=== PATIENT | female | born 1990 | race African-American/Black ===

== ENCOUNTER 2016-08-07 12:11 | Inpatient (IN) | payer OTHER ==
[2016-08-07 12:23] VITALS: BMI 34.4
[2016-08-07] MEDS ORDERED: ONDANSETRON 4 MG/2 ML VIAL IVPB ONE (13:15)
[2016-08-07] MEDS ORDERED: ACETAMINOPHEN 325 MG TABLET (FP) PO ONE (13:15)
[2016-08-07] MEDS ORDERED: SODIUM CHLORIDE 1,000 ML IV ONE (13:15)
--- NOTE | 2016-08-07 13:16 | PDOC ---
History of Present Illness - General Chief Complaint: Pain Stated Complaint: ABD PAIN Time Seen by Provider: 08/07/16 13:09 History Source: Patient Exam Limitations: No Limitations - History of Present Illness Travel History: No Initial Comments: 08/07/16 13:26 26y F no pmhx presents with abdominal pain, n/v/d, x 2 days. Pt states she started having lower abodminal pain that is sharp in nature, she has been having multiple episodes of vomiting that was yellow/green in color and having water diarrhea that was occasionally blood streaked. The pt denies any fevers, but was noted febrile here in ED. The patient denies any recent travel and known sick contacts - the pt did note that she had similar sypmtoms in may that resolved spontaneously. No abd surgery in the past. Denies dysuria, hematuria, vag bleeding. Past History - Past Medical History Allergies/Adverse Reactions: Allergies Allergy/AdvReac Type Severity Reaction Status Date / Time No Known Allergies Allergy Verified 08/07/16 12:23 Cancer: (LEUKEMIA) - Psycho/Social/Smoking Cessation Hx Suicidal Ideation: No Smoking History: Never smoked Information on smoking cessation initiated: No Review of Systems - Review of Systems Able to Perform ROS?: Yes Comments:: 08/07/16 13:29 Constitutional - no reported Fever, Chills, weakness, HEENT: no reported vision changes, sore throat Respiratory: no reported cough, sob, hemoptysis Cardiac: no reported chest pain, palpitations, light headedness, leg swelling Abd/GI: reported abd pain, nausea, vomiting, diarrhea, blood streaked stool/ diarrhea : no reported dysuria, frequency, discharge Musculskelatal - no reported back pain, joint swelling skin - no reported bruising, erythema, rash neurological: no reported headache, numbness, focal weakness, tingling, ataxia, weakness hematologic: no reported anemia, easy bruising, easy bleeding *Physical Exam - Vital Signs Last Vital Signs Temp Pulse Resp BP Pulse Ox 102.7 F H 129 H 18 126/74 98 08/07/16 12:20 08/07/16 12:20 08/07/16 12:20 08/07/16 12:20 08/07/16 12:20 - Physical Exam Comments: 08/07/16 13:30 GENERAL: The patient is awake, alert, and fully oriented, Nontoxic - in no acute distress. HEAD: Normocephalic, atraumatic. EYES: extraocular movements intact, sclera anicteric, conjunctiva clear. ENT: Normal voice, Moist mucous membranes. NECK: Normal range of motion, supple LUNGS: Breath sounds equal, clear to auscultation bilaterally. No wheezes, no rhonchi, no rales. HEART: tachycardic, mild diffuse tenderness greatest in RLQ/LUQ ABDOMEN: Soft, nontender, normoactive bowel sounds. No guarding, no rebound. . No CVA tenderness EXTREMITIES: Normal range of motion, no edema. No clubbing or cyanosis. No cords, erythema, or tenderness. NEUROLOGICAL: No facial assymetry, Normal speech, PSYCH: Normal mood, normal affect. SKIN: hot to touch, Dry, normal turgor, ED Treatment Course - LABORATORY CBC & Chemistry Diagram: 08/07/16 13:40 08/07/16 13:40 Medical Decision Making - Medical Decision Making 08/07/16 13:30 suspect gastroenteritis will obtain blood work will treat supportively with fluids, zofran, tylenol consider imaging 08/07/16 17:[address] c/w pancolitis pt did have an episode of this in may that resolved w/o intervention - ?UC/ crohns? pt still feeling nauseus with abomdinal pain will admit for further mangament of colitis pt written for levaquin/flagyl will discuss with dr. gallagher 08/07/16 17:[address] gallagher consult for dr. leon placed in computer on behalf of dr. gallagher. agreed with admission for further mangament of colitis will admit to observation in med/surg Case discussed in detail with admitting physician including history, physical exam and ancillary studies. Admitting physician has assumed care for the patient, will follow all pending diagnostics and will complete the evaluation and treatment. *DC/Admit/Observation/Transfer Diagnosis at time of Disposition: Pancolitis - Discharge Dispostion Condition at time of disposition: Guarded Admit: Yes - Referrals Referrals: STAFF,NOT ON [Primary Care Provider] -
[2016-08-07] MEDS ORDERED: ONDANSETRON 4 MG/2 ML VIAL ONE (13:28)
[2016-08-07] MEDS ORDERED: ACETAMINOPHEN 325 MG TABLET (FP) ONE (13:42)
[2016-08-07 13:47] LABS: BASOPHIL 0.4 % (0-2.0); EOSINOPHIL 0.1 % (0-4.5); MCH 21.8 pg (25.7-33.7); MCHC 31.9 g/dl (32.0-36.0); MEAN CELL VOLUME 68.3 fl (80-96); NEUTROPHILS 88.6 % (42.8-82.8); PLATELET COUNT 268 K/MM3 (134-434); RDW 14.2 % (11.6-15.6); WHITE BLOOD COUNT 14.9 K/mm3 (4.0-10.0)
[2016-08-07 13:53] LABS: URINE APPEARANCE CLEAR; URINE BILIRUBIN NEGATIVE (NEGATIVE); URINE COLOR YELLOW; URINE GLUCOSE (UA) NEGATIVE (NEGATIVE); URINE KETONE NEGATIVE (NEGATIVE); URINE LEUK ESTERASE NEGATIVE (NEGATIVE); URINE NITRITE NEGATIVE (NEGATIVE); URINE UROBILINOGEN NEGATIVE E.U./dl (0.2-1.0)
[2016-08-07 13:56] LABS: URINE BLOOD 1+ (NEGATIVE); URINE PROTEIN 1+ (NEGATIVE)
[2016-08-07 13:58] LABS: URINE MUCUS RARE; URINE RBC 2 /hpf (0-3); URINE WBC 3 /hpf (3-5)
[2016-08-07 14:19] LABS: ALBUMIN 3.7 g/dl (3.4-5.0); ANION GAP 10 (8-16); BILIRUBIN,TOTAL 0.5 mg/dL (0.2-1.0); CALCIUM 9.1 mg/dL (8.5-10.1); CO2 28 mmol/L (21-32); GLUCOSE,RANDOM 85 mg/dL (74-106); TOT PROT 7.9 g/dl (6.4-8.2)
[2016-08-07 14:43] LABS: ALK PHOS 73 U/L (45-117); SGOT/AST 22 U/L (15-37); SGPT/ALT 22 U/L (12-78)
[2016-08-07 14:45] LABS: HYPOCHROMIA 2+; MICROCYTOSIS 2+
[2016-08-07] MEDS ORDERED: LEVOFLOXACIN 750 MG IVPB 150 ML IVPB ONE ×2 (17:00→17:29)
--- NOTE | 2016-08-07 19:23 | HP ---
Admitting History and Physical - Primary Care Physician PCP: Darvin Chavis - Admission History of Present Illness: 26yo female, came to Er with abdominal pain, n/v/d, x 2 days. Pt states she started having lower abodminal pain that is sharp in nature, she has been having multiple episodes of vomiting that was yellow/green in color and having water diarrhea that was occasionally blood streaked. The pt denies any fevers, she had similar symptoms in may - Smoking History Smoking history: Never smoked Home Medications - Allergies Allergies/Adverse Reactions: Allergies Allergy/AdvReac Type Severity Reaction Status Date / Time No Known Allergies Allergy Verified 08/07/16 12:23 - Home Medications Home Medications: Ambulatory Orders NK [No Known Home Medication] 08/07/16 Physical Examination Vital Signs: Vital Signs Temperature 98.9 F 08/07/16 18:38 Pulse Rate 94 H 08/07/16 18:38 Respiratory Rate 18 08/07/16 18:38 Blood Pressure 129/91 08/07/16 18:38 O2 Sat by Pulse Oximetry (%) 97 08/07/16 18:38 Constitutional: Yes: No Distress HENT: Yes: Atraumatic Neck: Yes: Supple Cardiovascular: Yes: Regular Rate and Rhythm Respiratory: Yes: CTA Bilaterally Gastrointestinal: Yes: Normal Bowel Sounds Extremities: Yes: WNL Neurological: Yes: Alert, Oriented Problem List - Problems (1) Pancolitis Assessment/Plan: npo ivf iv abx will check stool for diff ova and parasite Code(s): K51.00 - ULCERATIVE (CHRONIC) PANCOLITIS WITHOUT COMPLICATIONS Assessment/Plan Laboratory Tests 08/07/16 08/07/16 08/07/16 13:08 13:40 13:40 WBC 14.9 H RBC 5.40 H Hgb 11.7 Hct 36.9 MCV 68.3 L MCHC 31.9 L RDW 14.2 Plt Count 268 MPV 8.0 Neutrophils % 88.6 H Lymphocytes % 5.9 L Monocytes % 5.0 Eosinophils % 0.1 Basophils % 0.4 Hypochromic-Microcytic 2+ Microcytosis 2+ Sodium 138 Potassium 3.8 Chloride 100 Carbon Dioxide 28 Anion Gap 10 BUN 6 L Creatinine 1.0 Creat Clearance w eGFR > 60 Random Glucose 85 Calcium 9.1 Total Bilirubin 0.5 AST 22 ALT 22 Alkaline Phosphatase 73 Total Protein 7.9 Albumin 3.7 Urine Color Yellow Urine Appearance Clear Urine pH 5.0 Ur Specific [place] 1.021 Urine Protein 1+ H Urine Glucose (UA) Negative Urine Ketones Negative Urine Blood 1+ H Urine Nitrite Negative Urine Bilirubin Negative Urine Urobilinogen Negative Ur Leukocyte Esterase Negative Urine RBC 2 Urine WBC 3 Ur Epithelial Cells Rare Urine Mucus Rare Urine HCG, Qual Negative
[2016-08-07] MEDS ORDERED: HYDROmorphone HCL CARPU-JECT 1 MG/1 ML DISP.SYRIN IVPB PRN (20:38)
[2016-08-07] MEDS: SODIUM CHLORIDE 1,000 ML IV SCH (21:56)
[2016-08-07] MEDS: ONDANSETRON 4 MG/2 ML VIAL IVPB PRN (21:57)
[2016-08-07] MEDS: METRONIDAZOLE 500 MG PREMIXED 100 ML IVPB SCH (21:57)
[2016-08-08] MEDS: PIPERACILLIN/TAZOB 3.375 GM/50 ML PRE-DOCKED IVPB SCH ×3 (01:29→18:33)
[2016-08-08] MEDS ORDERED: PIPERACILLIN/TAZOB 3.375 GM 3.375 GM in DEXTROSE 5%-WATER - 50 ML IVPB SCH (02:00)
[2016-08-08] MEDS: METRONIDAZOLE 500 MG PREMIXED 100 ML IVPB SCH ×3 (03:45→16:57)
[2016-08-08] MEDS: ONDANSETRON 4 MG/2 ML VIAL IVPB PRN ×2 (03:46→09:50)
[2016-08-08 07:56] LABS: BASOPHIL 0.2 % (0-2.0); EOSINOPHIL 0.1 % (0-4.5); MCH 21.9 pg (25.7-33.7); MCHC 32.2 g/dl (32.0-36.0); MEAN CELL VOLUME 68.2 fl (80-96); MEAN PLT VOLUME 8.3 fl (7.5-11.1); PLATELET COUNT 255 K/MM3 (134-434); RDW 14.2 % (11.6-15.6); WHITE BLOOD COUNT 12.4 K/mm3 (4.0-10.0)
[2016-08-08 08:23] LABS: ALBUMIN 3.3 g/dl (3.4-5.0); ANION GAP 11 (8-16); BILIRUBIN,TOTAL 0.5 mg/dL (0.2-1.0); CALCIUM 8.6 mg/dL (8.5-10.1); CO2 25 mmol/L (21-32); CREATININE 0.9 mg/dL (0.55-1.02); GLUCOSE,RANDOM 78 mg/dL (74-106); SGOT/AST 21 U/L (15-37); SGPT/ALT 22 U/L (12-78); TOT PROT 7.1 g/dl (6.4-8.2)
[2016-08-08 08:24] LABS: ALK PHOS 64 U/L (45-117)
[2016-08-08] MEDS ORDERED: LEVOFLOXACIN 500 MG IVPB 100 ML IVPB SCH (10:00)
--- NOTE | 2016-08-08 15:16 | CONSULT ---
Consult Consult Specialty:: infectious diseases Referred by:: Dr Chavis Reason for Consultation:: abd pain - History of Present Illness Chief Complaint: abd pain and vomiting History of Present Illness: 26yo female, with abdominal pain, n/v/d, x 2 days. Pt states she started having lower abdominal pain that is sharp in nature, she has been having multiple episodes of vomiting that was yellow/green in color and having water diarrhea that was occasionally blood streaked. The pt denies any fevers, she had similar symptoms in May and was told that she had food poisoning currently the patient is comfortable but with abd pain which has improved - History Source History Provided By: Patient Limitations to Obtaining History: No Limitations - Smoking History Smoking history: Never smoked Home Medications - Allergies Allergies/Adverse Reactions: Allergies Allergy/AdvReac Type Severity Reaction Status Date / Time No Known Allergies Allergy Verified 08/07/16 12:23 - Home Medications Home Medications: Ambulatory Orders NK [No Known Home Medication] 08/07/16 Review of Systems - Review of Systems Constitutional: reports: No Symptoms Eyes: reports: No Symptoms HENT: reports: No Symptoms Neck: reports: No Symptoms Cardiovascular: reports: No Symptoms Respiratory: reports: No Symptoms Gastrointestinal: reports: Abdominal Pain, Diarrhea, Nausea, Vomiting Genitourinary: reports: No Symptoms Musculoskeletal: reports: No Symptoms Integumentary: reports: No Symptoms Neurological: reports: No Symptoms Endocrine: reports: No Symptoms Hematology/Lymphatic: reports: No Symptoms Psychiatric: reports: No Symptoms Physical Exam Vital Signs: Vital Signs Temperature 99.5 F 08/08/16 06:30 Pulse Rate 92 H 08/08/16 06:30 Respiratory Rate 20 08/08/16 06:30 Blood Pressure 117/62 08/08/16 06:30 O2 Sat by Pulse Oximetry (%) 97 08/07/16 18:38 Constitutional: Yes: Well Nourished, Mild Distress, Obese Eyes: Yes: Conjunctiva Clear HENT: Yes: Atraumatic Neck: Yes: Supple, Trachea Midline Cardiovascular: Yes: Regular Rate and Rhythm Respiratory: Yes: Regular, CTA Bilaterally Gastrointestinal: Yes: Soft, Hypoactive Bowel Sounds Musculoskeletal: Yes: WNL Extremities: Yes: WNL Integumentary: Yes: WNL Neurological: Yes: Alert, Oriented Psychiatric: Yes: Alert, Oriented Labs: CBC, BMP 08/08/16 06:30 08/08/16 06:30 Imaging - Results Cat Scan: Report Reviewed, Image Reviewed Assessment/Plan patient seen after looking at the imaging studies patient has extensive colitis Problem List - Problems (1) Pancolitis Code(s): K51.00 - ULCERATIVE (CHRONIC) PANCOLITIS WITHOUT COMPLICATIONS plan continue zosyn will stop levaquin patient is going to need abx for at least 5-6 days await for gi to see the patient keep patient npo for now hydration await for all other reports to be back
--- NOTE | 2016-08-08 15:58 | CON.GI ---
Consult Consult Specialty:: GI Referred by:: Dr. Chavis Reason for Consultation:: Abdominal pain/diarrhea - History of Present Illness Chief Complaint: I was having abdominal pain and had diarrhea History of Present Illness: 26 year old woman admitted through [facility] ER. She was in her USOH up until this past sunday. Later in the day sunday while at work she developed abdominal pain associated with diarrhea and nausea. She felt too sick to drive home from work (she lives in [place], works in [place]) and stayed at a hotel in [place]. While there, she vomited twice. She described chills however no fevers have been reported. She had diarrhea while admitted which was collected for culture, O&P, C. Diff. She remembers eating pancakes with sausage sunday morning and eating "food at work, possibly chicken and rice" Sunday evening. she saw some blood tinge mixed in with the diarrhea. She denies recent travel or antibiotic use / sick contacts. Overall her abdominal pain is improved and she feels hungry. She describes a similar episodes in May, when she evaluated at the [facility] ER and told of food poisoning. She denies chronic diarrhea / weight loss. She has never had an upper endoscopy or colonoscopy. There is no family history of colorectal cancer / IBD. - History Source History Provided By: Patient Limitations to Obtaining History: No Limitations - Past Medical History Heme/Onc: Yes: Other (ALL at age 2-3, received chemotherapy) - Past Surgical History Past Surgical History: Yes: None - Alcohol/Substance Use Hx Alcohol Use: Yes (social) History of Substance Use: reports: None - Smoking History Smoking history: Never smoked - Social History Usual Living Arrangement: Alone ADL: Independent Occupation: Works at [employer] in [place] Place of : [employer] History of Recent Travel: Yes (Traveled to [place] 04/21-05/23) Home Medications - Allergies Allergies/Adverse Reactions: Allergies Allergy/AdvReac Type Severity Reaction Status Date / Time No Known Allergies Allergy Verified 08/07/16 12:23 - Home Medications Home Medications: Ambulatory Orders NK [No Known Home Medication] 08/07/16 Family Disease History - Family Disease History Family Disease History: Other: Father (Alive: CAD), Mother (Alive: Multiple Sclerosis), Sister (4 1/2 siblings: healthy) Other Family History: No family history of IBD / colon cancer Review of Systems - Review of Systems Constitutional: reports: Chills. denies: Night Sweats, Unintentional Wgt. Loss Cardiovascular: denies: Chest Pain Respiratory: denies: SOB Gastrointestinal: reports: Abdominal Pain, Diarrhea. denies: Melena, Vomiting, Vomiting Blood Physical Exam-GI Vital Signs: Vital Signs Temperature 99.7 F H 08/08/16 15:43 Pulse Rate 92 H 08/08/16 15:43 Respiratory Rate 20 08/08/16 15:43 Blood Pressure 125/67 08/08/16 15:43 O2 Sat by Pulse Oximetry (%) 97 08/07/16 18:38 Constitutional: Yes: Calm Eyes: No: Sclera Icterus Cardiovascular: Yes: Regular Rate and Rhythm. No: Murmur Respiratory: Yes: CTA Bilaterally Gastrointestinal Inspection: No: Distention ...Auscultate: Yes: Normoactive Bowel Sounds ...Palpate: No: Hepatomegaly, Splenomegaly, Tenderness ...Percussion: No: Tympanitic ...Rectal Exam: Yes: Other (With Monotype Caster: trace ligght brown liquid stool, guaiac negative) Edema: No Neurological: Yes: Alert, Oriented Labs: CBC, BMP 08/08/16 06:30 08/08/16 06:30 Hepatic Panel Total Bilirubin 0.5 mg/dL (0.2-1.0) 08/08/16 06:30 AST 21 U/L (15-37) 08/08/16 06:30 ALT 22 U/L (12-78) 08/08/16 06:30 Alkaline Phosphatase 64 U/L (45-117) 08/08/16 06:30 Albumin 3.3 g/dl (3.4-5.0) L 08/08/16 06:30 Problem List - Problems (1) Pancolitis Assessment/Plan: ? infectious / new onset IBD Stool for C. Diff, culture, O&P collected Advance diet to low residue Abx per ID for now If persistentce of symptoms, would consider Flexible sigmoidoscopy later in the week CBC / IBD serologies / CRP in AM Code(s): K51.00 - ULCERATIVE (CHRONIC) PANCOLITIS WITHOUT COMPLICATIONS
[2016-08-08] MEDS: SODIUM CHLORIDE 1,000 ML IV SCH (18:32)
--- NOTE | 2016-08-08 19:33 | PN ---
Progress Note, Physician - Current Medication List Current Medications: Active Medications Hydromorphone HCl (Dilaudid Injection -) 1 mg IVPB Q3H PRN PRN Reason: PAIN Sodium Chloride (Normal Saline -) 1,000 mls @ 75 mls/hr IV ASDIR MILTON Last Admin: 08/08/16 18:32 Dose: 75 mls/hr Ondansetron HCl (Zofran Injection) 4 mg IVPB Q4H PRN PRN Reason: NAUSEA AND/OR VOMITING Last Admin: 08/08/16 09:50 Dose: 4 mg Piperacillin Sod/Tazobactam Sod (Zosyn 3.375gm Ivpb (Pre-Docked)) 3.375 gm IVPB Q8H-IV MILTON Last Admin: 08/08/16 18:33 Dose: 3.375 gm - Objective Vital Signs: Vital Signs Temperature 99.2 F 08/08/16 17:04 Pulse Rate 74 08/08/16 17:04 Respiratory Rate 20 08/08/16 17:04 Blood Pressure 125/74 08/08/16 17:04 O2 Sat by Pulse Oximetry (%) 100 08/08/16 09:00 Constitutional: Yes: No Distress HENT: Yes: Atraumatic Neck: Yes: Supple Cardiovascular: Yes: Regular Rate and Rhythm Respiratory: Yes: CTA Bilaterally Gastrointestinal: Yes: Normal Bowel Sounds Extremities: Yes: WNL Neurological: Yes: Alert, Oriented Labs: CBC, BMP 08/08/16 06:30 08/08/16 06:30 Problem List - Problems (1) Pancolitis Assessment/Plan: low residue diet ivf iv abx will check stool for diff ova and parasite gi consult done Code(s): K51.00 - ULCERATIVE (CHRONIC) PANCOLITIS WITHOUT COMPLICATIONS
[2016-08-09] MEDS: PIPERACILLIN/TAZOB 3.375 GM/50 ML PRE-DOCKED IVPB SCH ×3 (02:35→17:47)
[2016-08-09] MEDS ORDERED: ACETAMINOPHEN 325 MG TABLET (FP) PO PRN (08:31)
[2016-08-09] MEDS: ACETAMINOPHEN 325 MG TABLET (FP) PO PRN (10:07)
--- NOTE | 2016-08-09 14:41 | PN ---
Progress Note, Physician History of Present Illness: patient doing well abd pain much better bowel movement improves - Current Medication List Current Medications: Active Medications Acetaminophen (Tylenol -) 650 mg PO Q6H PRN PRN Reason: PAIN Last Admin: 08/09/16 10:07 Dose: 650 mg Hydromorphone HCl (Dilaudid Injection -) 1 mg IVPB Q3H PRN PRN Reason: PAIN Sodium Chloride (Normal Saline -) 1,000 mls @ 75 mls/hr IV ASDIR MILTON Last Admin: 08/08/16 18:32 Dose: 75 mls/hr Ondansetron HCl (Zofran Injection) 4 mg IVPB Q4H PRN PRN Reason: NAUSEA AND/OR VOMITING Last Admin: 08/08/16 09:50 Dose: 4 mg Piperacillin Sod/Tazobactam Sod (Zosyn 3.375gm Ivpb (Pre-Docked)) 3.375 gm IVPB Q8H-IV MILTON Last Admin: 08/09/16 10:02 Dose: 3.375 gm - Objective Vital Signs: Vital Signs Temperature 98.1 F 08/09/16 14:03 Pulse Rate 78 08/09/16 14:03 Respiratory Rate 17 08/09/16 14:03 Blood Pressure 125/78 08/09/16 11:59 O2 Sat by Pulse Oximetry (%) 99 08/09/16 09:00 Constitutional: Yes: No Distress, Calm, Obese Cardiovascular: Yes: Regular Rate and Rhythm Respiratory: Yes: Regular, CTA Bilaterally Gastrointestinal: Yes: Normal Bowel Sounds, Soft Musculoskeletal: Yes: WNL Extremities: Yes: WNL Neurological: Yes: Alert, Oriented Psychiatric: Yes: Alert, Oriented Labs: CBC, BMP 08/08/16 06:30 08/08/16 06:30 Assessment/Plan patient seen after looking at the imaging studies patient has extensive colitis Problem List - Problems (1) Pancolitis Code(s): K51.00 - ULCERATIVE (CHRONIC) PANCOLITIS WITHOUT COMPLICATIONS plan continue zosyn continue monitoring wbc trending down will follow wbc
--- NOTE | 2016-08-09 17:17 | PN ---
Progress Note, Physician History of Present Illness: tolerating diet - Current Medication List Current Medications: Active Medications Acetaminophen (Tylenol -) 650 mg PO Q6H PRN PRN Reason: PAIN Last Admin: 08/09/16 10:07 Dose: 650 mg Hydromorphone HCl (Dilaudid Injection -) 1 mg IVPB Q3H PRN PRN Reason: PAIN Sodium Chloride (Normal Saline -) 1,000 mls @ 75 mls/hr IV ASDIR MILTON Last Admin: 08/08/16 18:32 Dose: 75 mls/hr Ondansetron HCl (Zofran Injection) 4 mg IVPB Q4H PRN PRN Reason: NAUSEA AND/OR VOMITING Last Admin: 08/08/16 09:50 Dose: 4 mg Piperacillin Sod/Tazobactam Sod (Zosyn 3.375gm Ivpb (Pre-Docked)) 3.375 gm IVPB Q8H-IV MILTON Last Admin: 08/09/16 10:02 Dose: 3.375 gm - Objective Vital Signs: Vital Signs Temperature 98.1 F 08/09/16 14:03 Pulse Rate 78 08/09/16 14:03 Respiratory Rate 17 08/09/16 14:03 Blood Pressure 125/78 08/09/16 11:59 O2 Sat by Pulse Oximetry (%) 99 08/09/16 09:00 Constitutional: Yes: No Distress HENT: Yes: Atraumatic Neck: Yes: Supple Cardiovascular: Yes: Regular Rate and Rhythm Respiratory: Yes: CTA Bilaterally Gastrointestinal: Yes: Normal Bowel Sounds Extremities: Yes: WNL Neurological: Yes: Alert, Oriented Labs: CBC, BMP 08/08/16 06:30 08/08/16 06:30 Problem List - Problems (1) Pancolitis Assessment/Plan: tolerating diet iv abx id anf gi consult reviewed Code(s): K51.00 - ULCERATIVE (CHRONIC) PANCOLITIS WITHOUT COMPLICATIONS
--- NOTE | 2016-08-09 19:03 | PN ---
GI Progress Note Subjective: No diarrhea today No abdominal pain Tolerating PO - Objective Vital Signs: Vital Signs Temperature 98.1 F 08/09/16 17:17 Pulse Rate 82 08/09/16 17:17 Respiratory Rate 20 08/09/16 17:17 Blood Pressure 119/77 08/09/16 17:17 O2 Sat by Pulse Oximetry (%) 99 08/09/16 09:00 Constitutional: Calm Labs: CBC, BMP 08/08/16 06:30 08/08/16 06:30 Microbiology 08/08/16 13:30 Stool Parasite Direct Smear - Neg 08/08/16 13:30 Stool Giardia Antigen (JONATHAN) - Neg 08/08/16 13:30 Stool Clostridium difficile Antigen (JONATHAN) - Neg 08/08/16 13:30 Stool Clostridium difficile Toxin Assay - Neg 08/08/16 18:50 Stool Norovirus GI - Pending 08/08/16 18:50 Stool Norovirus GII - Pending 08/08/16 13:30 Stool Parasite Permanent Smear - neg Stool Culture Pending Laboratory Tests 08/09/16 07:00 C-Reactive Protein 6.7 H Problem List - Problems (1) Pancolitis Assessment/Plan: Clinically much improved Tolerating PO and diarrhea resolved Continue Low residue diet Awaiting remainder of the stool studies Code(s): K51.00 - ULCERATIVE (CHRONIC) PANCOLITIS WITHOUT COMPLICATIONS
[2016-08-09 19:56] LABS: BASOPHIL 0.7 % (0-2.0); MCH 22.1 pg (25.7-33.7); MCHC 32.1 g/dl (32.0-36.0); MEAN CELL VOLUME 68.8 fl (80-96); MEAN PLT VOLUME 8.8 fl (7.5-11.1); NEUTROPHILS 52.6 % (42.8-82.8); PLATELET COUNT 246 K/MM3 (134-434); WHITE BLOOD COUNT 8.3 K/mm3 (4.0-10.0)
[2016-08-09 20:36] LABS: CALCIUM 8.2 mg/dL (8.5-10.1); CREATININE 0.9 mg/dL (0.55-1.02)
[2016-08-10] MEDS: SODIUM CHLORIDE 1,000 ML IV SCH ×3 (02:47→14:03)
[2016-08-10] MEDS: PIPERACILLIN/TAZOB 3.375 GM/50 ML PRE-DOCKED IVPB SCH ×3 (02:47→17:43)
[2016-08-10 08:20] LABS: MCH 22.3 pg (25.7-33.7); MCHC 32.3 g/dl (32.0-36.0); MEAN CELL VOLUME 69.1 fl (80-96); MEAN PLT VOLUME 8.3 fl (7.5-11.1); PLATELET COUNT 255 K/MM3 (134-434); RDW 14.4 % (11.6-15.6); WHITE BLOOD COUNT 8.5 K/mm3 (4.0-10.0)
[2016-08-10] MEDS: ACETAMINOPHEN 325 MG TABLET (FP) PO PRN (09:57)
--- NOTE | 2016-08-10 15:02 | PN ---
GI Progress Note Subjective: No abdominal pain Tolerating PO No diarrhea, just feeling "gassy" Stool studies unrevealing to date, norovirus pending - Objective Vital Signs: Vital Signs Temperature 98.4 F 08/10/16 09:04 Pulse Rate 64 08/10/16 09:04 Respiratory Rate 20 08/10/16 09:04 Blood Pressure 101/68 08/10/16 09:04 O2 Sat by Pulse Oximetry (%) 100 08/10/16 09:00 Constitutional: Calm Eyes: No: Sclera Icterus Cardiovascular: Yes: Regular Rate and Rhythm Respiratory: Yes: CTA Bilaterally Gastrointestinal Inspection: No: Distention ...Auscultate: Yes: Normoactive Bowel Sounds ...Palpate: No: Tenderness Edema: No Neurological: Yes: Alert, Oriented Labs: CBC, BMP 08/10/16 06:15 08/09/16 19:00 Hepatic Panel Total Bilirubin 0.5 mg/dL (0.2-1.0) 08/08/16 06:30 AST 21 U/L (15-37) 08/08/16 06:30 ALT 22 U/L (12-78) 08/08/16 06:30 Alkaline Phosphatase 64 U/L (45-117) 08/08/16 06:30 Albumin 3.3 g/dl (3.4-5.0) L 08/08/16 06:30 Laboratory Tests 08/09/16 08/09/16 07:00 19:00 C-Reactive Protein 6.7 H 5.2 H D Problem List - Problems (1) Pancolitis Assessment/Plan: Clinically asymptomatic at this point. Stool studies negative to date and crp trending down Upon discharge offered follow-up in office with me in 2-3 weeks. Information will be provided in discharge plan. Ms. Urena tells me that she thinks her mother made her an appointment to see a information security associate in the city 08/19 and it may be more convenient for her to go there. I advised that she ask for copies of her lab studies, CT scan results if she chooses to see the doc in [facility]. Code(s): K51.00 - ULCERATIVE (CHRONIC) PANCOLITIS WITHOUT COMPLICATIONS
--- NOTE | 2016-08-10 15:05 | PN ---
Progress Note, Physician History of Present Illness: patient improving tolerating diet still with some abd pain - Current Medication List Current Medications: Active Medications Acetaminophen (Tylenol -) 650 mg PO Q6H PRN PRN Reason: PAIN Last Admin: 08/10/16 09:57 Dose: 650 mg Hydromorphone HCl (Dilaudid Injection -) 1 mg IVPB Q3H PRN PRN Reason: PAIN Sodium Chloride (Normal Saline -) 1,000 mls @ 75 mls/hr IV ASDIR MILTON Last Admin: 08/10/16 14:03 Dose: 75 mls/hr Ondansetron HCl (Zofran Injection) 4 mg IVPB Q4H PRN PRN Reason: NAUSEA AND/OR VOMITING Last Admin: 08/08/16 09:50 Dose: 4 mg Piperacillin Sod/Tazobactam Sod (Zosyn 3.375gm Ivpb (Pre-Docked)) 3.375 gm IVPB Q8H-IV MILTON Last Admin: 08/10/16 09:53 Dose: 3.375 gm - Objective Vital Signs: Vital Signs Temperature 98.4 F 08/10/16 09:04 Pulse Rate 64 08/10/16 09:04 Respiratory Rate 20 08/10/16 09:04 Blood Pressure 101/68 08/10/16 09:04 O2 Sat by Pulse Oximetry (%) 100 08/10/16 09:00 Constitutional: Yes: Calm, Mild Distress Cardiovascular: Yes: Regular Rate and Rhythm Respiratory: Yes: Regular, CTA Bilaterally Gastrointestinal: Yes: Normal Bowel Sounds, Soft Musculoskeletal: Yes: WNL Extremities: Yes: WNL Neurological: Yes: Alert, Oriented Psychiatric: Yes: Alert, Oriented Labs: CBC, BMP 08/10/16 06:15 08/09/16 19:00 Assessment/Plan patient seen after looking at the imaging studies patient has extensive colitis Problem List - Problems (1) Pancolitis Code(s): K51.00 - ULCERATIVE (CHRONIC) PANCOLITIS WITHOUT COMPLICATIONS plan continue zosyn crp trending down serology studies pending continue current mgmt
--- NOTE | 2016-08-10 17:17 | PN ---
Progress Note, Physician History of Present Illness: tolerating diet - Current Medication List Current Medications: Active Medications Acetaminophen (Tylenol -) 650 mg PO Q6H PRN PRN Reason: PAIN Last Admin: 08/10/16 09:57 Dose: 650 mg Hydromorphone HCl (Dilaudid Injection -) 1 mg IVPB Q3H PRN PRN Reason: PAIN Sodium Chloride (Normal Saline -) 1,000 mls @ 75 mls/hr IV ASDIR MILTON Last Admin: 08/10/16 14:03 Dose: 75 mls/hr Ondansetron HCl (Zofran Injection) 4 mg IVPB Q4H PRN PRN Reason: NAUSEA AND/OR VOMITING Last Admin: 08/08/16 09:50 Dose: 4 mg Piperacillin Sod/Tazobactam Sod (Zosyn 3.375gm Ivpb (Pre-Docked)) 3.375 gm IVPB Q8H-IV MILTON Last Admin: 08/10/16 09:53 Dose: 3.375 gm - Objective Vital Signs: Vital Signs Temperature 98.3 F 08/10/16 17:12 Pulse Rate 70 08/10/16 17:12 Respiratory Rate 20 08/10/16 17:12 Blood Pressure 105/61 08/10/16 17:12 O2 Sat by Pulse Oximetry (%) 100 08/10/16 09:00 Constitutional: Yes: No Distress HENT: Yes: Atraumatic Neck: Yes: Supple Cardiovascular: Yes: Regular Rate and Rhythm Respiratory: Yes: CTA Bilaterally Gastrointestinal: Yes: Normal Bowel Sounds Extremities: Yes: WNL Neurological: Yes: Alert, Oriented Labs: CBC, BMP 08/10/16 06:15 08/09/16 19:00 Problem List - Problems (1) Pancolitis Assessment/Plan: tolerating diet iv abx id anf gi consult reviewed Code(s): K51.00 - ULCERATIVE (CHRONIC) PANCOLITIS WITHOUT COMPLICATIONS
[2016-08-11] MEDS: PIPERACILLIN/TAZOB 3.375 GM/50 ML PRE-DOCKED IVPB SCH ×3 (02:34→17:27)
[2016-08-11] MEDS: SODIUM CHLORIDE 1,000 ML IV SCH ×3 (02:35→17:27)
[2016-08-11] MEDS ORDERED: FLUCONAZOLE 150 MG TABLET PO ONE (10:00)
[2016-08-11] MEDS ORDERED: MAG HYDROX/AL HYDROX/SIMETH 30 ML UNIT-DOSE CUP PO ONE (13:00)
--- NOTE | 2016-08-11 14:30 | PN ---
Progress Note, Physician History of Present Illness: doing well abd pain better no new issues - Current Medication List Current Medications: Active Medications Acetaminophen (Tylenol -) 650 mg PO Q6H PRN PRN Reason: PAIN Last Admin: 08/10/16 09:57 Dose: 650 mg Sodium Chloride (Normal Saline -) 1,000 mls @ 75 mls/hr IV ASDIR MILTON Last Admin: 08/11/16 09:38 Dose: Not Given Ondansetron HCl (Zofran Injection) 4 mg IVPB Q4H PRN PRN Reason: NAUSEA AND/OR VOMITING Last Admin: 08/08/16 09:50 Dose: 4 mg Piperacillin Sod/Tazobactam Sod (Zosyn 3.375gm Ivpb (Pre-Docked)) 3.375 gm IVPB Q8H-IV MILTON Last Admin: 08/11/16 09:42 Dose: 3.375 gm - Objective Vital Signs: Vital Signs Temperature 98.6 F 08/11/16 10:00 Pulse Rate 86 08/11/16 10:00 Respiratory Rate 20 08/11/16 10:00 Blood Pressure 129/78 08/11/16 10:00 O2 Sat by Pulse Oximetry (%) 98 08/11/16 09:00 Constitutional: Yes: No Distress, Calm Cardiovascular: Yes: Regular Rate and Rhythm Respiratory: Yes: Regular, CTA Bilaterally Gastrointestinal: Yes: Normal Bowel Sounds, Soft Musculoskeletal: Yes: WNL Extremities: Yes: WNL Integumentary: Yes: WNL Neurological: Yes: Alert, Oriented Psychiatric: Yes: Alert, Oriented Labs: CBC, BMP 08/10/16 06:15 08/09/16 19:00 Assessment/Plan patient seen after looking at the imaging studies patient has extensive colitis Problem List - Problems (1) Pancolitis Code(s): K51.00 - ULCERATIVE (CHRONIC) PANCOLITIS WITHOUT COMPLICATIONS plan continue zosyn will be able to switch to oral tomorrow serology studies pending continue current mgmt patient to go on augmentin 875mg twice a day for another 7 dys
--- NOTE | 2016-08-11 15:04 | PN ---
GI Progress Note Subjective: GI NOte: No diarrhea yesterday. Had one loose small volume BM today and some lower abdominal cramps after eating some cheese in her omelet. Stool for norvirus and campylobacter still pending. She is c/o acid reflux. - Objective Vital Signs: Vital Signs Temperature 98.6 F 08/11/16 10:00 Pulse Rate 86 08/11/16 10:00 Respiratory Rate 20 08/11/16 10:00 Blood Pressure 129/78 08/11/16 10:00 O2 Sat by Pulse Oximetry (%) 98 08/11/16 09:00 CBC,CMP WBC 8.5 K/mm3 (4.0-10.0) 08/10/16 06:15 RBC 4.84 M/mm3 (3.60-5.2) 08/10/16 06:15 Hgb 10.8 GM/dL (10.7-15.3) 08/10/16 06:15 Hct 33.4 % (32.4-45.2) 08/10/16 06:15 MCV 69.1 fl (80-96) L 08/10/16 06:15 MCHC 32.3 g/dl (32.0-36.0) 08/10/16 06:15 RDW 14.4 % (11.6-15.6) 08/10/16 06:15 Plt Count 255 K/MM3 (134-434) 08/10/16 06:15 MPV 8.3 fl (7.5-11.1) 08/10/16 06:15 Neutrophils % 52.6 % (42.8-82.8) D 08/09/16 19:00 Lymphocytes % 28.9 % (8-40) D 08/09/16 19:00 Monocytes % 11.8 % (3.8-10.2) H 08/09/16 19:00 Eosinophils % 6.0 % (0-4.5) H D 08/09/16 19:00 Basophils % 0.7 % (0-2.0) D 08/09/16 19:00 Hypochromic-Microcytic 2+ 08/07/16 13:40 Microcytosis 2+ 08/07/16 13:40 Sodium 141 mmol/L (136-145) 08/09/16 19:00 Potassium 3.8 mmol/L (3.5-5.1) 08/09/16 19:00 Chloride 106 mmol/L (98-107) 08/09/16 19:00 Carbon Dioxide 25 mmol/L (21-32) 08/09/16 19:00 Anion Gap 10 (8-16) 08/09/16 19:00 BUN 7 mg/dL (7-18) 08/09/16 19:00 Creatinine 0.9 mg/dL (0.55-1.02) 08/09/16 19:00 Creat Clearance w eGFR > 60 (>60) 08/08/16 06:30 Random Glucose 96 mg/dL (74-106) D 08/09/16 19:00 Calcium 8.2 mg/dL (8.5-10.1) L 08/09/16 19:00 Total Bilirubin 0.5 mg/dL (0.2-1.0) 08/08/16 06:30 AST 21 U/L (15-37) 08/08/16 06:30 ALT 22 U/L (12-78) 08/08/16 06:30 Alkaline Phosphatase 64 U/L (45-117) 08/08/16 06:30 C-Reactive Protein 5.2 MG/DL (0.00-0.3) H D 08/09/16 19:00 Total Protein 7.1 g/dl (6.4-8.2) 08/08/16 06:30 Albumin 3.3 g/dl (3.4-5.0) L 08/08/16 06:30 Current Medications Generic Name Dose Route Start Last Admin Trade Name Freq PRN Reason Stop Dose Admin Acetaminophen 650 mg 08/09/16 08:32 08/10/16 09:57 Tylenol - PO 650 mg Q6H PRN Administration PAIN Sodium Chloride 1,000 mls @ 75 mls/hr 08/07/16 19:30 08/11/16 09:38 Normal Saline - IV Not Given ASDIR MILTON Ondansetron HCl 4 mg 08/07/16 20:38 08/08/16 09:50 Zofran Injection IVPB 4 mg Q4H PRN Administration NAUSEA AND/OR VOMITING Piperacillin Sod/Tazobactam Sod 3.375 gm 08/08/16 02:00 08/11/16 09:42 Zosyn 3.375gm Ivpb (Pre-Docked) IVPB 3.375 gm Q8H-IV MILTON Administration Constitutional: Calm ...Auscultate: Yes: Normoactive Bowel Sounds ...Palpate: Yes: Soft, Other (nontender) Labs: CBC, BMP 08/10/16 06:15 08/09/16 19:00 Assessment/Plan Resolving infectious colitis. Will switch to lactose free diet and instructed to stay lactose free for 7 days. Will start PPI. NO GI objections to discharge as planned for tomorrow.
[2016-08-11] MEDS: PANTOPRAZOLE 40 MG TABLET (FP) PO SCH (17:27)
[2016-08-12] MEDS: PIPERACILLIN/TAZOB 3.375 GM/50 ML PRE-DOCKED IVPB SCH ×3 (01:10→18:17)
[2016-08-12] MEDS: PANTOPRAZOLE 40 MG TABLET (FP) PO SCH (11:00)
--- NOTE | 2016-08-12 12:41 | PN ---
Progress Note, Physician History of Present Illness: doing well no pain - Current Medication List Current Medications: Active Medications Acetaminophen (Tylenol -) 650 mg PO Q6H PRN PRN Reason: PAIN Last Admin: 08/10/16 09:57 Dose: 650 mg Sodium Chloride (Normal Saline -) 1,000 mls @ 75 mls/hr IV ASDIR MILTON Last Admin: 08/11/16 17:27 Dose: 75 mls/hr Ondansetron HCl (Zofran Injection) 4 mg IVPB Q4H PRN PRN Reason: NAUSEA AND/OR VOMITING Last Admin: 08/08/16 09:50 Dose: 4 mg Pantoprazole Sodium (Protonix -) 40 mg PO DAILY MILTON Last Admin: 08/12/16 11:00 Dose: 40 mg Piperacillin Sod/Tazobactam Sod (Zosyn 3.375gm Ivpb (Pre-Docked)) 3.375 gm IVPB Q8H-IV MILTON Last Admin: 08/12/16 11:01 Dose: Not Given - Objective Vital Signs: Vital Signs Temperature 98.2 F 08/12/16 06:00 Pulse Rate 72 08/12/16 06:00 Respiratory Rate 16 08/12/16 06:00 Blood Pressure 116/59 08/12/16 06:00 O2 Sat by Pulse Oximetry (%) 99 08/11/16 21:00 Constitutional: Yes: No Distress, Calm Cardiovascular: Yes: Regular Rate and Rhythm Respiratory: Yes: Regular, CTA Bilaterally Gastrointestinal: Yes: Normal Bowel Sounds, Soft Musculoskeletal: Yes: WNL Extremities: Yes: WNL Integumentary: Yes: WNL Neurological: Yes: Alert, Oriented Psychiatric: Yes: Alert, Oriented Labs: CBC, BMP 08/10/16 06:15 08/09/16 19:00 Assessment/Plan patient seen after looking at the imaging studies patient has extensive colitis Problem List - Problems (1) Pancolitis Code(s): K51.00 - ULCERATIVE (CHRONIC) PANCOLITIS WITHOUT COMPLICATIONS plan can change to oral abx as planned rest as per primary
[2016-08-12 14:54] VITALS: BP 116/69; PULSE 73; TEMP 98
--- NOTE | 2016-08-12 15:15 | PN ---
GI Progress Note Subjective: GI Note: Pain and diarrhea free. No longer on IV antibiotics. Campylobacter cultures negative. Norovirus still pending - Objective Vital Signs: Vital Signs Temperature 98.0 F 08/12/16 14:51 Pulse Rate 73 08/12/16 14:51 Respiratory Rate 18 08/12/16 14:51 Blood Pressure 116/69 08/12/16 14:51 O2 Sat by Pulse Oximetry (%) 99 08/12/16 09:00 Constitutional: Calm ...Auscultate: Yes: Normoactive Bowel Sounds ...Palpate: Yes: Soft Labs: CBC, BMP 08/10/16 06:15 08/09/16 19:00 Assessment/Plan Resolving infectious colitis. No GI objections to discharge. Again advised to avoid dairy for a week. Will followup with Dr Hensley.
--- NOTE | 2016-08-12 20:08 | PN ---
Progress Note, Physician History of Present Illness: tolerating diet pt seen and examined on 08/11...note was not written - Objective Vital Signs: Vital Signs Temperature 98.0 F 08/12/16 14:51 Pulse Rate 73 08/12/16 14:51 Respiratory Rate 18 08/12/16 14:51 Blood Pressure 116/69 08/12/16 14:51 O2 Sat by Pulse Oximetry (%) 99 08/12/16 09:00 Constitutional: Yes: No Distress HENT: Yes: Atraumatic Neck: Yes: Supple Cardiovascular: Yes: Regular Rate and Rhythm Respiratory: Yes: CTA Bilaterally Gastrointestinal: Yes: Normal Bowel Sounds Extremities: Yes: WNL Neurological: Yes: Alert, Oriented Labs: CBC, BMP 08/10/16 06:15 08/09/16 19:00 Problem List - Problems (1) Pancolitis Assessment/Plan: tolerating diet iv abx dc in am on po abx Code(s): K51.00 - ULCERATIVE (CHRONIC) PANCOLITIS WITHOUT COMPLICATIONS
--- NOTE | 2016-08-12 20:09 | DS ---
Physical Examination Vital Signs: Vital Signs Temperature 98.0 F 08/12/16 14:51 Pulse Rate 73 08/12/16 14:51 Respiratory Rate 18 08/12/16 14:51 Blood Pressure 116/69 08/12/16 14:51 O2 Sat by Pulse Oximetry (%) 99 08/12/16 09:00 Labs: CBC, BMP 08/10/16 06:15 08/09/16 19:00 Discharge Summary Reason For Visit: PANCOLITIS Current Active Problems Pancolitis (Acute) Condition: Guarded - Instructions Referrals: Chang Hensley DO [Staff Physician] - 2 Weeks STAFF,NOT ON [Primary Care Provider] - Disposition: HOME - Home Medications Comprehensive Discharge Medication List: Ambulatory Orders Amoxicillin/Potassium Clav [Augmentin 875-125 Tablet] 1 each PO BID #14 tablet 08/11/16 dc home fu gi/pmd 1 week
== END 2016-08-12 18:54 | disposition home or self-care (01) | DRG 245 ==
LOC: JER 12:11 → JERBED 17:10 → OBSVTOIN 19:23 → J8W 21:19
PROVIDERS: ADMIT Internal Medicine; ATTEND Internal Medicine
DX: K51.00 Ulcerative (chronic) pancolitis without complications (principal); E66.9 Obesity, unspecified; Z68.34 Body mass index [BMI] 34.0-34.9, adult
CPT/HCPCS: 36415; 74177-TC; 80048; 80053; 81003; 81015; 84703; 85025; 85027; 86140; 86256; 86671; 87045; 87046; 87177; 87209; 87324; 87328; 87329; 87449; 87798; 99283-25; G0378

== ENCOUNTER 2016-09-28 23:58 | Emergency (ER) | payer OTHER ==
[2016-09-29 00:47] VITALS: BP 140/88; PULSE 88; TEMP 97.5; BMI 28.1
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
[2016-09-29 01:00] LABS: URINE APPEARANCE CLEAR; URINE BILIRUBIN NEGATIVE (NEGATIVE); URINE BLOOD NEGATIVE (NEGATIVE); URINE COLOR LTYELLOW; URINE GLUCOSE (UA) NEGATIVE (NEGATIVE); URINE KETONE NEGATIVE (NEGATIVE); URINE LEUK ESTERASE NEGATIVE (NEGATIVE); URINE NITRITE NEGATIVE (NEGATIVE); URINE PROTEIN NEGATIVE (NEGATIVE); URINE UROBILINOGEN NEGATIVE E.U./dl (0.2-1.0)
[2016-09-29] MEDS ORDERED: KETOROLAC TROMETHAMINE 30 MG/1 ML VIAL IM ONE (03:11)
[2016-09-29] MEDS ORDERED: KETOROLAC TROMETHAMINE 30 MG/1 ML VIAL ONE (03:26)
== END 2016-09-29 05:10 | disposition home or self-care (01) ==
LOC: JER 23:58
PROC: 3E0233Z Introduction of Anti-inflammatory into Muscle, Percutaneous Approach (ICD-10-PCS; principal; 2016-09-28)
DX: M54.5 Low back pain (principal); M54.2 Cervicalgia; V49.9XXA Car occupant (driver) (passenger) injured in unspecified traffic accident, initial encounter; W22.11XA Striking against or struck by driver side automobile airbag, initial encounter; Y92.488 Other paved roadways as the place of occurrence of the external cause; Y93.89 Activity, other specified; Y99.8 Other external cause status
CPT/HCPCS: 70450-TC; 72100-TC; 72125-TC; 73110-TC-LT; 73130-TC-LT; 81003; 84703; 99283-25

== ENCOUNTER 2018-11-24 09:31 | Emergency (ER) | payer OTHER ==
[2018-11-24 09:37] VITALS: BP 121/77; PULSE 81; TEMP 98.5; BMI 38.0
[2018-11-24] MEDS ORDERED: KETOROLAC TROMETHAMINE 30 MG/1 ML VIAL IVPUSH ONE (09:59)
[2018-11-24] MEDS ORDERED: SODIUM CHLORIDE 1,000 ML IV STA (09:59)
[2018-11-24] MEDS ORDERED: ONDANSETRON 4 MG/2 ML VIAL IVPUSH ONE (09:59)
[2018-11-24] MEDS ORDERED: PANTOPRAZOLE SODIUM 40 MG in SODIUM CHLORIDE 100 ML IVPB ONE (09:59)
[2018-11-24] MEDS ORDERED: KETOROLAC TROMETHAMINE 30 MG/1 ML VIAL ONE (10:03)
[2018-11-24] MEDS ORDERED: ONDANSETRON 4 MG/2 ML VIAL ONE (10:03)
[2018-11-24] MEDS ORDERED: PANTOPRAZOLE SODIUM 40 MG VIAL ONE (10:04)
[2018-11-24 10:14] LABS: BASO % 1.4 % (0-2.0); EOS % 2.2 % (0-4.5); HEMOGLOBIN 11.9 GM/dL (10.7-15.3); LYMPH % 24.7 % (8-40); MCHC 32.2 g/dl (32.0-36.0); MEAN CELL VOLUME 68.4 fl (80-96); MONO % 6.5 % (3.8-10.2); NEUT % 65.2 % (42.8-82.8); PLATELET COUNT 302 K/MM3 (134-434); RBC 5.41 M/mm3 (3.60-5.2); RDW 14.9 % (11.6-15.6); WHITE BLOOD COUNT 10.9 K/mm3 (4.0-10.0)
[2018-11-24 10:38] LABS: ALBUMIN 3.6 g/dl (3.4-5.0); BILIRUBIN,TOTAL 0.3 mg/dL (0.2-1); BLOOD UREA NITROGEN 12.7 mg/dL (7-18); CALCIUM 8.7 mg/dL (8.5-10.1); CREATININE 0.7 mg/dL (0.55-1.3); POTASSIUM 4.4 mmol/L (3.5-5.1); TOT PROT 7.9 g/dl (6.4-8.2)
--- NOTE | 2018-11-24 10:43 | PDOC ---
History of Present Illness - General Chief Complaint: Pain Stated Complaint: ABD PAIN / BLOODY STOOL Time Seen by Provider: 11/24/18 09:37 History Source: Patient Exam Limitations: No Limitations - History of Present Illness Travel History: No Initial Comments: 11/24/18 10:46 28-year-old female presents the emergency room with complaints of upper abdominal sharp pain since last evening now associated with 3 episodes of brown soft stool last one containing blood patient denies fever, chills, recent constipation, recent travel recent illness. Patient does state history of colitis. Patient has no urinary complaints but does complain of nausea since this morning. Patient unsure if she ate food that was bad at of [email or web address] last night Timing/Duration: reports: constant Quality: reports: mild, burning, stabbing Abdominal Pain Onset Location: reports: epigastric Pain Radiation: reports: no radiation Activities at Onset: reports: none Aggravating Factors: improves with: None Alleviating Factors: improves with: None Past History - Travel Traveled outside of the country in the last 30 days: No Close contact w/someone who was outside of country & ill: No - Past Medical History Allergies/Adverse Reactions: Allergies Allergy/AdvReac Type Severity Reaction Status Date / Time No Known Allergies Allergy Verified 11/24/18 09:38 Home Medications: Ambulatory Orders NK [No Known Home Medication] 11/24/18 Cancer: (LEUKEMIA) COPD: No GI Disorders: Yes (colitis) - Immunization History Immunization Up to Date: Yes - Suicide/Smoking/Psychosocial Hx Smoking History: Never smoked Have you smoked in the past 12 months: No Hx Alcohol Use: Yes (social) Drug/Substance Use Hx: No Patient Lives Alone: No Lives with/in: spouse/SO Abd/GI Specific PMHX - Complaint Specific PMHX Colitis: Yes GERD: No Review of Systems - Review of Systems Able to Perform ROS?: Yes Constitutional: No: Symptoms Reported HEENTM: No: Symptoms Reported Respiratory: No: Symptoms reported Cardiac (ROS): No: Symptoms Reported ABD/GI: Yes: Blood Streaked Bowels, Nausea, Abdominal cramping : No: Symptoms Reported Musculoskeletal: No: Symptoms Reported Integumentary: No: Symptoms Reported Neurological: No: Symptoms reported Hematologic/Lymphatic: No: Symptoms Reported *Physical Exam - Vital Signs Last Vital Signs Temp Pulse Resp BP Pulse Ox 98.5 F 81 18 121/77 98 11/24/18 09:35 11/24/18 09:35 11/24/18 09:35 11/24/18 09:35 11/24/18 09:35 - Physical Exam General Appearance: Yes: Nourished, Appropriately Dressed. No: Apparent Distress HEENT: negative: Pale Conjunctivae Neck: positive: Normal Thyroid Respiratory/Chest: positive: Lungs Clear, Normal Breath Sounds. negative: Respiratory Distress, Accessory Muscle Use Cardiovascular: positive: Regular Rhythm, Regular Rate. negative: Murmur Gastrointestinal/Abdominal: positive: Soft, Tenderness (epigastric right upper quadrant) Rectal Exam: positive: normal exam (brown stool on withdrawn glove), normal rectal tone. negative: hemorrhoids Musculoskeletal: negative: CVA Tenderness Extremity: positive: Normal Capillary Refill Integumentary: positive: Normal Color, Warm, Moist Neurologic: positive: Motor Strength 5/5 (ambulatory) ED Treatment Course - LABORATORY CBC & Chemistry Diagram: 11/24/18 09:50 11/24/18 09:50 - ADDITIONAL ORDERS Additional order review: Laboratory Results 11/24/18 10:00 Stool Occult Blood Positive 11/24/18 09:50 RBC 5.41 H MCV 68.4 L MCHC 32.2 RDW 14.9 MPV 8.0 Neutrophils % 65.2 D Lymphocytes % 24.7 Monocytes % 6.5 Eosinophils % 2.2 Basophils % 1.4 - Medications Given in the ED: ED Medications Discontinued Medications Generic Name Dose Route Start Last Admin Trade Name Freq PRN Reason Stop Dose Admin Pantoprazole Sodium 40 mg/ 100 mls @ 200 mls/hr 11/24/18 09:59 11/24/18 10:14 Sodium Chloride IVPB 11/24/18 10:28 200 mls/hr ONCE ONE Administration Ondansetron HCl 4 mg 11/24/18 09:59 11/24/18 10:14 Zofran Injection IVPUSH 11/24/18 10:00 4 mg ONCE ONE Administration Medical Decision Making - Medical Decision Making 11/24/18 10:00 Chief complaint: Patient with upper abdominal sharp pain associated with nausea and one episode of bloody stool this morning. Patient history of colitis and unsure if history of gallstones. Exam epigastric and right upper quadrant tenderness vital signs stable Plan: urine, labs, IV fluids Zofran and protonix ordered 11/24/18 10:52 Laboratory Tests 11/24/18 11/24/18 11/24/18 09:50 09:50 10:00 WBC 10.9 H Hgb 11.9 Hct 37.0 MCV 68.4 L Neutrophils % 65.2 D Sodium 139 Potassium 4.4 Chloride 106 Carbon Dioxide 28 Anion Gap 5 L BUN 12.7 Creatinine 0.7 Random Glucose 92 AST 29 ALT 23 Lipase 120 Urine HCG, Qual Stool Occult Blood Positive 11/24/18 10:10 WBC Hgb Hct MCV Neutrophils % Sodium Potassium Chloride Carbon Dioxide Anion Gap BUN Creatinine Random Glucose AST ALT Lipase Urine HCG, Qual Negative Stool Occult Blood 11/24/18 10:52 Patient still Complaining of nausea. Will order Reglan. 11/24/18 12:09 Laboratory Tests 11/24/18 10:10 Urine Ketones Negative Urine Blood Negative Urine Nitrite Negative Urine Bilirubin Negative Ur Leukocyte Esterase Negative pt states is feeling better. Will dc home with zofran *DC/Admit/Observation/Transfer Diagnosis at time of Disposition: Abdominal pain, Blood in stool - Discharge Dispostion Disposition: HOME Condition at time of disposition: Improved - Referrals - Patient Instructions Printed Discharge Instructions: DI for Abdominal Pain-Adult, Driver Diet Additional Instructions: At this time your blood work and urine were normal. There was small amount of blood noted in your stool so I recommend following a bland diet for the next 48 hours and then advance as tolerated. May take Zofran as needed for nausea. If you develop fever, severe abd pain, or worsening rectal bleeding, return to the ED - Post Discharge Activity
[2018-11-24] MEDS ORDERED: METOCLOPRAMIDE HCL INJECTION 10 MG/2 ML VIAL IVPB ONE (10:50)
[2018-11-24] MEDS ORDERED: METOCLOPRAMIDE HCL INJECTION 10 MG/2 ML VIAL ONE (10:57)
[2018-11-24 12:00] LABS: PH,URINE 5.5 (5.0-8.0); URINE APPEARANCE CLEAR; URINE BILIRUBIN NEGATIVE (NEGATIVE); URINE COLOR YELLOW; URINE GLUCOSE (UA) NEGATIVE (NEGATIVE); URINE KETONE NEGATIVE (NEGATIVE); URINE LEUK ESTERASE NEGATIVE (NEGATIVE); URINE NITRITE NEGATIVE (NEGATIVE); URINE PROTEIN NEGATIVE (NEGATIVE); URINE UROBILINOGEN 0.2 mg/dL (0.2-1.0)
== END 2018-11-24 12:47 | disposition home or self-care (01) ==
LOC: JER 09:31
PROC: 3E0333Z Introduction of Anti-inflammatory into Peripheral Vein, Percutaneous Approach (ICD-10-PCS; principal; 2018-11-24)
PROC: 3E0337Z Introduction of Electrolytic and Water Balance Substance into Peripheral Vein, Percutaneous Approach (ICD-10-PCS; 2018-11-24)
PROC: 3E033GC Introduction of Other Therapeutic Substance into Peripheral Vein, Percutaneous Approach (ICD-10-PCS; 2018-11-24)
DX: R10.9 Unspecified abdominal pain (principal); K92.1 Melena
CPT/HCPCS: 36415; 80053; 81003; 82272; 83690; 84703; 85025; 99283-25; J7030